=== PATIENT | male | born 1985 | race American Indian/Alaskan Native ===

== ENCOUNTER 2018-07-08 14:37 | Emergency (ER) | payer OTHER ==
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
[2018-07-08] MEDS ORDERED: DELTASONE PO ONE (16:59)
[2018-07-08] MEDS ORDERED: FLEXERIL PO ONE (16:59)
[2018-07-08] MEDS ORDERED: TORADOL IM ONE (16:59)
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
[2018-07-08] MEDS ORDERED: CATAPRES PO ONE (17:02)
[2018-07-08] MEDS ORDERED: IBUPROFEN PO ONE (17:23)
[2018-07-08] MEDS ORDERED: IBUPROFEN ONE (17:24)
[2018-07-08 18:09] VITALS: BP 165/112
== END 2018-07-08 18:10 | disposition home or self-care (01) ==
LOC: ED 14:37
DX: M54.5 Low back pain (principal); R03.0 Elevated blood-pressure reading, without diagnosis of hypertension
CPT/HCPCS: 99282; J7512; J1885